=== PATIENT | female | born 1965 | race Caucasian/White ===

== ENCOUNTER 2017-05-13 10:57 | Emergency (ER) | payer BC ==
[~2017-05-13] VITALS: Ht 167.6 cm; Wt 109.3 kg
[2017-05-13 11:01] VITALS: TEMP 36.8; Ht 167.6 cm; Wt 109.3 kg
[2017-05-13] MEDS ORDERED: ONDANSETRON INJ 2 MG/ML 2 ML VIAL IV STA (11:37)
[2017-05-13] MEDS ORDERED: SODIUM CHLORIDE 0.9% 1000ML 1,000 ML IV STA (11:37)
[2017-05-13] MEDS ORDERED: MoRPHine SULFATE 4 MG/ML 1 ML CARP\\VIAL ONE ×3 (11:47→19:50)
[2017-05-13 11:51] LABS: BASO % 0.2 %; BASO ABS # 0.02 K/uL (0-0.2); COMPLETE YES; EOS % 0.2 %; HEMATOCRIT 39.7 % (37-47); IG% 0.2 %; MEAN CELL VOLUME 83.4 fL (80-100); MEAN CORPUSCULAR HEMOGLOBIN 28.4 pg (25-34); MEAN PLATELET VOLUME 8.8 fL (7.4-10.4); MONO % 12.3 %; NEUT % 74.1 %; PLATELET COUNT 392 K/uL (130-400); RED BLOOD COUNT 4.76 M/uL (4.2-5.4); WHITE BLOOD COUNT 9.26 K/uL (4.8-10.8)
[2017-05-13 11:57] LABS: URINE APPEARANCE CLOUDY (CLEAR); URINE BILIRUBIN NEG (NEG); URINE COLOR YELLOW; URINE EPITHELIAL CELL AUTO >30 /lpf (0-5); URINE NITRITE NEG (NEG); URINE SPECIFIC GRAVITY 1.019 (1.000-1.030); UROBILINOGEN NEG (NEG)
[2017-05-13 11:58] LABS: MANUAL MICROSCOPIC REQUIRED? NO; REVIEW REQ? NO
[2017-05-13 12:01] LABS: BUN/CREATININE RATIO 14.3 (10-20); CREATININE 0.76 mg/dl (0.60-1.20); POTASSIUM 3.6 mmol/L (3.5-5.1)
[2017-05-13] MEDS ORDERED: MULT-506 PO (12:28)
[2017-05-13] MEDS ORDERED: HYDR12.56 PO (12:28)
[2017-05-13] MEDS ORDERED: BUSP-8 PO (12:28)
[2017-05-13] MEDS ORDERED: MISCCAP80 PO (12:28)
[2017-05-13] MEDS ORDERED: FLUO20CA35 PO (12:28)
[2017-05-13] MEDS ORDERED: OPTIRAY 320 IV PRN (12:30)
[2017-05-13] MEDS ORDERED: ACETAMINOPHEN IV 650 MG in EMPTY BAG 0 ML IV ONE (13:00)
--- NOTE | 2017-05-13 14:01 | DIAGNOSTIC IMAGING REPORT ---
CT SCAN OF THE ABDOMEN AND PELVIS WITH IV CONTRAST CLINICAL HISTORY: Left lower quadrant abdominal pain. COMPARISON STUDY: No priors. TECHNIQUE: Following the IV administration of 94 cc of Optiray 320, CT scan of the abdomen and pelvis is performed from the lung bases to the proximal femora. Images are reviewed in the axial, sagittal, and coronal planes. IV contrast was administered without complication. Automated dose control exposure was utilized. A dose lowering technique was utilized adhering to the principles of ALARA. CT DOSE: 1554.63 mGy.cm FINDINGS: Lung bases: The heart is normal in size and without pericardial effusion. A 3 mm low suspicion right lower lobe pulmonary nodule is incidentally noted on axial image #38. The lung bases are otherwise clear noting dependent atelectasis. There is a moderate hiatal hernia. Liver: The contrast-enhanced liver is normal in size, contour, and attenuation. There is no intrahepatic biliary ductal dilatation. The hepatic veins and portal veins are patent. Gallbladder: Unremarkable. Spleen: Normal in size and attenuation. Pancreas: Moderately atrophic. Adrenal glands: Unremarkable. Kidneys: The contrast enhanced kidneys are normal in size and without hydronephrosis. The kidneys enhance symmetrically. Abdominal vasculature: The abdominal aorta is normal in course and caliber noting mild atherosclerotic calcification. Bowel and peritoneum: There is no bowel obstruction. There is moderate diverticulosis of the left colon. There is wall thickening with significant surrounding pericolonic inflammation and fluid seen involving the distal descending/proximal sigmoid colon consistent with acute diverticulitis. There is a serpiginous and multiloculated fluid collection identified between the distal descending colon and the left ovary which measures approximately 5 x 4 x 1.5 cm in aggregate dimension. This is consistent with a diverticular abscess. The appendix is well-visualized and normal. No intraperitoneal free air is identified. Fluid is noted in the left paracolic gutter. Lymphadenopathy: None. Pelvic viscera: The bladder and uterus are normal as visualized. There are bilateral ovarian follicles. There is likely a reactive oophoritis of the left ovary. Skeletal structures: The skeletal structures are osteopenic. Mild lumbosacral spondylosis is observed. No lytic or blastic lesions are seen. IMPRESSION: 1. Findings are consistent with acute diverticulitis of the distal descending/proximal sigmoid colon. 2. There is a multiloculated diverticular abscess identified between the distal descending/proximal sigmoid colon in the left ovary. No intraperitoneal free air is seen. 3. Suspect reactive oophoritis of the left ovary. 4. Moderate hiatal hernia. 5. Additional findings as above. Electronically signed by: Ulysses Rios M.D. 05/13/2017 1:59 PM Dictated Date/Time: 05/13/2017 1:52 PM
[2017-05-13] MEDS ORDERED: CIPROFLOXACIN 400MG / 200ML D5W IV STA (14:30)
[2017-05-13] MEDS ORDERED: METRONIDAZOLE 500MG / 100ML NSS IV STA (14:53)
[2017-05-13] MEDS: MoRPHine SULFATE 10 MG/ML CARP/VIAL IV PRN ×2 (15:22→19:55)
--- NOTE | 2017-05-13 15:24 | EMERGENCY ROOM VISIT NOTE ---
ED Visit Note First contact with patient: 11:24 Chief Complaint: I think I'm having a flare of my diverticulitis. History of Present Illness: Ms. Carvalho is a 51 year-old white female who ambulates into the ED accompanied by her complaining of left lower quadrant abdominal pain. Historically patient reports diverticulitis with abscess formation. She is also status post insertion of drain for her abscess. Patient reports a acute onset of left lower quadrant abdominal pain that started approximately 24 hours ago. Initially the pain was mild and was intermittent. This morning upon wakening approximately 4 hours before she arrived in the emergency department the pain has been constant. She describes her pain as a pressure sensation. She rates her discomfort 6/10. Her pain is nonradiating. She has not identified any aggravating or alleviating factors related to the pain. She did take ibuprofen last night before bed and is unsure if that helped her discomfort. Associated with her discomfort she reports that she was going to move her bowels but started experiencing pain when she bared down socially did not for bowels. Patient denies fevers, chills, sweats, skin eruptions, skin color changes, upper respiratory tract symptoms, shortness of breath, chest pain, nausea, vomiting, diarrhea, constipation, rectal bleeding, black/tarry stools, urinary symptoms, hematuria, vaginal bleeding, vaginal discharge, back/flank pain. Review of Systems: As noted above in history of present illness. All body systems were reviewed and found to be negative as noted above. Past Medical History: As previously noted, hypertension, status post uterine ablation. Current Medications: Medications Dose Route/Sig Max Daily Dose Days Date Category Multivitamin (Multivitamins) Tab 1 Tab PO DAILY 05/13/17 Reported Probiotic (Probiotic Product) 1 Cap Cap 1 Cap PO DAILY 05/13/17 Reported Hctz (Hydrochlorothiazide) 12.5 Mg Cap 12.5 Mg PO DAILY 05/13/17 Reported Buspirone Hcl 10 Mg Tab 1 Tab PO BID 05/13/17 Reported Prozac (Fluoxetine HCl) 20 Mg Cap 20 Mg PO DAILY 05/13/17 Reported Allergies to Medications: Patient denies. Social History: Patient is currently employed; she feels safe in her home environment; she admits to tobacco and alcohol use. Physical Examination: Vital Signs: Date Time Temp Pulse Resp B/P (MAP) Pulse Ox O2 Delivery O2 Flow Rate FiO2 05/13/17 15:17 100 18 181/114 95 Room Air 05/13/17 14:19 107 16 170/91 98 Room Air 05/13/17 12:45 106 18 157/97 100 Room Air 05/13/17 11:01 36.8 118 20 170/83 95 GENERAL: 51-year-old female in mild distress due to pain, nontoxic-appearing, afebrile and hemodynamically stable. NEUROLOGICAL: Awake, alert and oriented to person, place and time. Answering questions appropriately and following commands. Normal gait. Good hand eye coordination. SKIN: Warm, dry and pink. No soft tissue eruptions or trauma noted. HEENT: Atraumatic and normocephalic. PERRLA. Sclera white and conjunctiva pink. Oral cavity moist and pink. Pharynx is nonerythematous or edematous. Speech normal. No lymphadenopathy. Trachea midline. No jugular venous distention. BACK: No tenderness over the bony spine. No CVA tenderness. THORAX: Lungs sounds are clear to auscultation and equal bilaterally with symmetrical chest wall. No wheezing, rales or rhonchi. No crepitus, tenderness , subcutaneous air or deformities noted. HEART: Regular rate and rhythm. No gallops, rubs or murmurs are appreciated. ABDOMEN: Obese and soft with mild tenderness in the left lower quadrant. Positive bowel sounds in all quadrants. No guarding, rigidity or organomegaly. EXTREMITIES: Moves all extremities well on command and with purpose. All distal neurovascular statuses are intact and equal bilaterally. ED Course: Patient is assessed as noted above. Laboratory Testing: Test 05/13/17 11:22 Range/Units White Blood Count 9.26 4.8-10.8 K/uL Red Blood Count 4.76 4.2-5.4 M/uL Hemoglobin 13.5 12.0-16.0 g/dL Hematocrit 39.7 37-47 % Mean Corpuscular Volume 83.4 80-100 fL Mean Corpuscular Hemoglobin 28.4 25-34 pg Mean Corpuscular Hemoglobin Concent 34.0 32-36 g/dl Platelet Count 392 130-400 K/uL Mean Platelet Volume 8.8 7.4-10.4 fL Neutrophils (%) (Auto) 74.1 % Lymphocytes (%) (Auto) 13.0 % Monocytes (%) (Auto) 12.3 % Eosinophils (%) (Auto) 0.2 % Basophils (%) (Auto) 0.2 % Neutrophils # (Auto) 6.86 1.4-6.5 K/uL Lymphocytes # (Auto) 1.20 1.2-3.4 K/uL Monocytes # (Auto) 1.14 0.11-0.59 K/uL Eosinophils # (Auto) 0.02 0-0.5 K/uL Basophils # (Auto) 0.02 0-0.2 K/uL RDW Standard Deviation 46.7 36.4-46.3 fL RDW Coefficient of Variation 15.2 11.5-14.5 % Immature Granulocyte % (Auto) 0.2 % Immature Granulocyte # (Auto) 0.02 0.00-0.02 K/uL Urine Color YELLOW Urine Appearance CLOUDY CLEAR Urine pH 5.0 4.5-7.5 Urine Specific [place] 1.019 1.000-1.030 Urine Protein NEG NEG Urine Glucose (UA) NEG NEG Urine Ketones 2+ NEG Urine Occult Blood 3+ NEG Urine Nitrite NEG NEG Urine Bilirubin NEG NEG Urine Urobilinogen NEG NEG Urine Leukocyte Esterase MODERATE NEG Urine WBC (Auto) 5-10 0-5 /hpf Urine RBC (Auto) 5-10 0-4 /hpf Urine Hyaline Casts (Auto) 1-5 0-5 /lpf Urine Epithelial Cells (Auto) >30 0-5 /lpf Urine Bacteria (Auto) NEG NEG Urine Test NEG NEG Sodium Level 136 136-145 mmol/L Potassium Level 3.6 3.5-5.1 mmol/L Chloride Level 105 98-107 mmol/L Carbon Dioxide Level 25 21-32 mmol/L Anion Gap 6.0 3-11 mmol/L Blood Urea Nitrogen 11 7-18 mg/dl Creatinine 0.76 0.60-1.20 mg/dl Est Creatinine Clear Calc Drug Dose 109.6 ml/min Estimated GFR () 105.3 Estimated GFR (Non- 90.8 BUN/Creatinine Ratio 14.3 10-20 Random Glucose 95 70-99 mg/dl Calcium Level 9.0 8.5-10.1 mg/dl Total Bilirubin 0.4 0.2-1 mg/dl Direct Bilirubin 0.1 0-0.2 mg/dl Aspartate Amino Transf (AST/SGOT) 15 15-37 U/L Alanine Aminotransferase (ALT/SGPT) 25 12-78 U/L Alkaline Phosphatase 100 45-117 U/L Total Protein 8.3 6.4-8.2 gm/dl Albumin 3.7 3.4-5.0 gm/dl Lipase 82 73-393 U/L Contrast Abdominal/Pelvic CT: Was reviewed by myself and read by the radiologist and shows Q diverticulitis of the distal descending/proximal sigmoid colon with a multiple loculated abscess between the colon and the left ovary. No free air. Suspected reactive oophoritis of the right ovary. Mild hiatal hernia. Patient was hydrated with normal saline and received 400 mg of ciprofloxacin IV and 500 mg of Flagyl IV for antibiotic coverage. Patient was offered pain medications multiple times and refused. Patient's case was reviewed with Dr. Shah; he agreed on diagnostic approach, treatment, disposition and plan. Patient's case was consulted with Dr. Jd Smith, general surgery; he recommended transfer to tertiary care center for interventional radiology. Patient's case was consulted with Dr. Castaneda, general surgery at [facility]; he accepted the patient in transfer. Patient was educated about today's findings. Clinical Impression: Diverticulitis with abdominal abscess. Decision-Making: Initially my differential diagnosis I considered diverticulitis , ovarian abscess, ectopic , constipation, perforated viscus, and other causes. Disposition and Plan: Patient be transferred to [facility] by advanced life support ambulance.
--- NOTE | 2017-05-13 17:27 | EMERGENCY ROOM VISIT NOTE ---
ED Visit Note First contact with patient: 11:24 The patient was seen and examined with Meek Parisi PA-C. I agree with the history, physical and findings. Please see the note for disposition and details.
[2017-05-13 20:25] VITALS: BP 141/67; PULSE 92; O2SAT 96
== END 2017-05-13 19:55 | disposition short-term general hospital (02) ==
LOC: C.EDB 10:59 → C.EDC 19:55
DX: K57.20 Diverticulitis of large intestine with perforation and abscess without bleeding (principal); R10.32 Left lower quadrant pain; I10 Essential (primary) hypertension; F17.200 Nicotine dependence, unspecified, uncomplicated